=== PATIENT | female | born 1995 | race Two or more races ===

== ENCOUNTER 2024-11-16 20:25 | Inpatient (IN) | payer OTHER ==
[~2024-11-16] VITALS: Ht 162.6 cm; Wt 45.4 kg
[2024-11-16 22:32] LABS: PLATELET COUNT (AUTO) 226 K/uL (179-408); RED BLOOD CELL COUNT(AUTO) 4.56 MIL/uL (3.63-4.92); RED CELL DISTRIBUTION WIDTH 12.7 % (12.3-17.7); WHITE BLOOD COUNT (AUTO) 14.1 K/uL (3.8-11.8)
[2024-11-16 22:44] LABS: ASPARTATE AMINOTRANSFERASE 16.0 U/L (15-37); CREATININE 0.6 mg/dL (0.6-1.3); SODIUM SERUM 137.0 mmol/L (136-145); TOTAL PROTEIN, SERUM 7.9 g/dL (6.4-8.2); UREA NITROGEN, BLOOD 10.0 mg/dL (7-18)
[2024-11-16 22:56] LABS: *BILIRUBIN,URIN NEGATIVE (NEGATIVE); *CLARITY,URINE CLEAR (CLEAR); *COLOR,URINE YELLOW (YELLOW); *KETONES,URINE 4+ (NEGATIVE); *PROTEIN,URINE NEGATIVE (NEGATIVE); *UROBILINOGEN,URINE 0.2 E.U./dl (NORMAL); LEUKOCYTE ESTERASE ,URINE TRACE (NEGATIVE); NITRITE, URINE NEGATIVE (NEGATIVE); UGLUCOSE NEGATIVE (NEGATIVE)
[2024-11-16 22:57] LABS: *BLOOD, URINE TRACE (NEGATIVE); *URINE HCG, QUAL NEGATIVE (NEGATIVE)
[2024-11-16 23:07] LABS: SQUAMOUS EPITHELIAL CELL,UR MODERATE /HPF (NONE SEEN)
[2024-11-17] MEDS ORDERED: PIPERACILLIN/TAZOBACTAM/D5W 50 ML IV ONE (02:05)
[2024-11-17] MEDS: IV NS 1000 ML 1,000 ML IV ONE (02:32)
[2024-11-17] MEDS: PIPERACILLIN SODIUM/TAZOBACTAM 3.375 G in IV DEXTROSE 5% 50 ML IV ONE (02:32)
[2024-11-17] MEDS: ONDANSETRON 4 MG/2 ML VIAL IV ONE (03:43)
[2024-11-17 07:04] LABS: CREATININE 0.6 mg/dL (0.6-1.3); SODIUM SERUM 138.0 mmol/L (136-145); UREA NITROGEN, BLOOD 10.0 mg/dL (7-18)
[2024-11-17 07:26] LABS: PLATELET COUNT (AUTO) 211 K/uL (179-408); RED BLOOD CELL COUNT(AUTO) 4.27 MIL/uL (3.63-4.92); RED CELL DISTRIBUTION WIDTH 12.6 % (12.3-17.7); WHITE BLOOD COUNT (AUTO) 10.3 K/uL (3.8-11.8)
[2024-11-17] MEDS: PANTOPRAZOLE SODIUM 40 MG VIAL IV SCH (09:06)
[2024-11-17] MEDS: IV NS 1000 ML 1,000 ML IV PRN (09:06)
[2024-11-17] MEDS: PIPERACILLIN SODIUM/TAZOBACTAM 3.375 G in IV DEXTROSE 5% 100 ML IV SCH (09:07)
[2024-11-17] MEDS: MORPHINE SULFATE 2 MG/1 ML DISP.SYRIN IV PRN (09:10)
[2024-11-17] MEDS: ONDANSETRON 4 MG/2 ML VIAL IV PRN (09:48)
[2024-11-17] MEDS ORDERED: PIPERACILLIN SODIUM/TAZOBACTAM 3.375 G in IV DEXTROSE 5% 50 ML IV SCH (10:00)
[2024-11-17 11:30] VITALS: BP 100/58; TEMP 98.4; O2SAT 94
[2024-11-17 15:13] VITALS: BP 103/69; TEMP 98.2; O2SAT 96
[2024-11-17 19:25] VITALS: BP 105/67; TEMP 99.7; O2SAT 98
[2024-11-17] MEDS ORDERED: BISACODYL 10 MG SUPP.RECT RC ONE (20:30)
[2024-11-17] MEDS: GOLYTELY 4000 ML BOTTLE PO ONE (21:41)
[2024-11-17] MEDS: BISACODYL 10 MG SUPP.RECT RC ONE (22:26)
[2024-11-18] MEDS: ACETAMINOPHEN 325 MG TABLET PO PRN (02:22)
[2024-11-18 06:25] VITALS: BP 114/77; TEMP 97.6; O2SAT 98
[2024-11-18 07:10] LABS: PLATELET COUNT (AUTO) 211 K/uL (179-408); RED BLOOD CELL COUNT(AUTO) 4.17 MIL/uL (3.63-4.92); RED CELL DISTRIBUTION WIDTH 12.8 % (12.3-17.7); WHITE BLOOD COUNT (AUTO) 8.4 K/uL (3.8-11.8)
[2024-11-18 07:24] LABS: CREATININE 0.6 mg/dL (0.6-1.3); SODIUM SERUM 140.0 mmol/L (136-145); UREA NITROGEN, BLOOD 6.0 mg/dL (7-18)
[2024-11-18 10:47] VITALS: BP 109/79; TEMP 98; O2SAT 99
[2024-11-18] MEDS ORDERED: DOCU-141 PO (13:20)
[2024-11-18] MEDS ORDERED: ONDA4TAB5 PO (13:20)
[2024-11-18] MEDS ORDERED: CEPH500C2 PO (13:20)
== END 2024-11-18 15:15 | disposition home or self-care (01) | DRG 394 ==
LOC: ER 20:25 → MEDSURG3 11-17 02:55
PROVIDERS: ADMIT Nurse Practitioner Family; ATTEND Internal Medicine
DX: K35.80 Unspecified acute appendicitis (principal); N39.0 Urinary tract infection, site not specified; Z68.1 Body mass index [BMI] 19.9 or less, adult; K58.9 Irritable bowel syndrome, unspecified; K56.41 Fecal impaction; R62.7 Adult failure to thrive
CPT/HCPCS: 36415; 74018; 83690; 83735; 84100; 84703; 85025; 87086; A4606; A4663; G0378; J2270; J2405; J2470; J2543; J7040